=== PATIENT | male | born 1985 | race Caucasian/White ===

== ENCOUNTER 2022-09-02 07:42 | Day surgery (SDC) | payer OTHER ==
[2022-09-02] MEDS ORDERED: Depo-Medrol 40 MG/ML IM ONE (07:43)
[2022-09-02] MEDS ORDERED: Sodium Chloride 0.9(Preservative Free) 10 ML IJ ONE (07:43)
[2022-09-02] MEDS ORDERED: DIPRIVAN 200 MG/20 ML IV ONE (08:57)
--- NOTE | 2022-09-02 10:31 | XRAY ---
Indication: Right L4-S1 transforaminal DEANNE. Intraoperative fluoroscopy provided for 40 seconds. 6 digital spot image submitted for interpretation demonstrates posterior needle tips projecting over the expected right L4 and L5 nerve roots. Small amount of contrast injected for needle tip placement. Correlate with intraoperative findings/report.
--- NOTE | 2022-09-02 10:46 | XRAY ---
40 seconds of fluoroscopy was used in surgery for a right L4-S1 transforaminal DEANNE.
[2022-09-02] MEDS ORDERED: Lactated Ringers 1,000 ML IV ONE (12:49)
== END 2022-09-02 09:27 | disposition home or self-care (01) ==
LOC: SDC-PAIN 07:42
PROVIDERS: ATTEND Psychiatry & Neurology Pain Medicine
DX: M54.16 Radiculopathy, lumbar region (principal); E11.9 Type 2 diabetes mellitus without complications; Z79.899 Other long term (current) drug therapy
CPT/HCPCS: 64483; 64484; 72100; 77003; 82947; J1030; J2704; Q9966